=== PATIENT | female | born 1990 | race Caucasian/White ===

== ENCOUNTER 2020-10-31 04:05 | Emergency (ER) | payer OTHER ==
[2020-10-31 04:17] VITALS: BMI 40.7
[2020-10-31] MEDS ORDERED: SODIUM CHLORIDE 1,000 ML IV STA (04:45)
[2020-10-31] MEDS ORDERED: ACETAMINOPHEN 1000 MG/100 ML VIAL (NON FORMULARY) IVPB ONE ×2 (05:36→11:12)
[2020-10-31] MEDS ORDERED: ACETAMINOPHEN INJECTION 100 ML IVPB ONE ×2 (05:47→11:17)
[2020-10-31] MEDS ORDERED: GENTAMICIN IVPB ONE (05:50)
[2020-10-31] MEDS ORDERED: SODIUM CHLORIDE IVPB ONE (05:50)
[2020-10-31] MEDS ORDERED: PIPERACILLIN/TAZOB 3.375 GM 3.375 GM in DEXTROSE 5%-WATER - 50 ML IVPB ONE (05:54)
[2020-10-31] MEDS ORDERED: PIPERACILLIN/TAZOB 3.375 GM 3.375 GM/50 ML BAG IVPB ONE (06:01)
[2020-10-31 06:20] LABS: BASO % 0.1 % (0-2.0); EOS % 0.1 % (0-4.5); HEMATOCRIT 30.9 % (32.4-45.2); HEMOGLOBIN 10.9 GM/dL (10.7-15.3); MCH 31.1 pg (25.7-33.7); MCHC 35.2 g/dl (32.0-36.0); MEAN CELL VOLUME 88.3 fl (80-96); MEAN PLT VOLUME 7.6 fl (7.5-11.1); MONO % 5.8 % (3.8-10.2); PLATELET COUNT 231 K/MM3 (134-434); RDW 14.8 % (11.6-15.6); WHITE BLOOD COUNT 13.9 K/mm3 (4.0-10.0)
[2020-10-31 06:28] LABS: INR 1.05 (0.83-1.09); PROTHROMBIN TIME (PATIENT) 12.9 SEC (9.7-13.0)
[2020-10-31 06:31] LABS: ACTIVATED PTT 25.2 SECONDS (25.2-36.5)
[2020-10-31 07:08] LABS: POTASSIUM 3.7 mmol/L (3.5-5.1)
[2020-10-31 07:10] LABS: ALBUMIN 2.7 g/dl (3.4-5.0); BLOOD UREA NITROGEN 6.2 mg/dL (7-18); CALCIUM 7.9 mg/dL (8.5-10.1)
[2020-10-31 07:14] LABS: CREATININE 0.6 mg/dL (0.55-1.3)
[2020-10-31 07:15] LABS: BILIRUBIN,TOTAL 0.5 mg/dL (0.2-1); TOT PROT 5.4 g/dl (6.4-8.2)
[2020-10-31] MEDS ORDERED: LACTATED RINGERS SOLUTION 1,000 ML/1,000 ML INFUS.BAG IV SCH (09:45)
[2020-10-31] MEDS ORDERED: morphine CARPU-JECT 4 MG/1 ML DISP.SYRIN IVPUSH ONE (10:39)
[2020-10-31] MEDS ORDERED: morphine SULFATE 4 MG/ML VIAL ONE (10:58)
[2020-10-31] MEDS ORDERED: AMPICILLIN - 2 GM in SODIUM CHLORIDE 100 ML IVPB ONE (11:19)
[2020-10-31] MEDS ORDERED: AMPICILLIN SODIUM 2 GM VIAL ONE (11:22)
[2020-10-31] MEDS ORDERED: WATER IVPB SCH (11:30)
[2020-10-31] MEDS ORDERED: GENTAMICIN IVPB SCH (11:30)
[2020-10-31] MEDS ORDERED: DEXTROSE 5% IVPB SCH (11:30)
[2020-10-31 11:43] VITALS: BP 120/53; PULSE 112; TEMP 103
== END 2020-10-31 11:52 | disposition short-term general hospital (02) ==
LOC: JER 04:05 → UNDOADMIN 05:48 → JERBED 05:48 → JER 11:52
PROC: 3E0333Z Introduction of Anti-inflammatory into Peripheral Vein, Percutaneous Approach (ICD-10-PCS; principal; 2020-10-31)
PROC: 3E0333Z Introduction of Anti-inflammatory into Peripheral Vein, Percutaneous Approach (ICD-10-PCS; 2020-10-31)
PROC: 3E03329 Introduction of Other Anti-infective into Peripheral Vein, Percutaneous Approach (ICD-10-PCS; 2020-10-31)
PROC: 3E033NZ Introduction of Analgesics, Hypnotics, Sedatives into Peripheral Vein, Percutaneous Approach (ICD-10-PCS; 2020-10-31)
PROC: 3E03329 Introduction of Other Anti-infective into Peripheral Vein, Percutaneous Approach (ICD-10-PCS; 2020-10-31)
PROC: 3E0337Z Introduction of Electrolytic and Water Balance Substance into Peripheral Vein, Percutaneous Approach (ICD-10-PCS; 2020-10-31)
DX: O02.1 Missed abortion (principal); O41.92X1 Disorder of amniotic fluid and membranes, unspecified, second trimester, fetus 1; O41.1221 Chorioamnionitis, second trimester, fetus 1
CPT/HCPCS: 36415; 76815-TC; 80053; 84702; 85025; 85610; 85730; 99285-25; C9803; J0131; U0003